=== PATIENT | male | born 1985 | race Caucasian/White ===

== ENCOUNTER 2024-07-09 10:25 | Outpatient (CLI) | payer BC, SELFPAY | END 2024-07-09 10:26 | disposition home or self-care (01) | PROVIDERS: PCP Family Medicine; Visit Provider Family Medicine | DX: Z00.00 Encounter for general adult medical examination without abnormal findings (principal); R35.0 Frequency of micturition; Z13.6 Encounter for screening for cardiovascular disorders; Z13.1 Encounter for screening for diabetes mellitus | CPT/HCPCS: 80048; 80061; G0103 ==